=== PATIENT | male | born 1935 | race Caucasian/White ===

== ENCOUNTER 2016-07-26 12:02 | Outpatient (CLI) | payer OTHER ==
[2014-07-30 11:50] VITALS: BP 138/72
== END 2016-07-26 12:03 ==
LOC: LAB 12:02
PROVIDERS: ATTEND Internal Medicine Cardiovascular Disease
DX: I48.0 Paroxysmal atrial fibrillation (principal); Z79.01 Long term (current) use of anticoagulants
CPT/HCPCS: 36415; 85610

== ENCOUNTER 2016-08-09 09:32 | Outpatient (CLI) | payer OTHER ==
[2014-07-30 11:50] VITALS: BP 138/72
== END 2016-08-09 09:44 ==
LOC: LAB 09:32
PROVIDERS: ATTEND Internal Medicine Cardiovascular Disease
DX: Z51.81 Encounter for therapeutic drug level monitoring (principal); Z79.01 Long term (current) use of anticoagulants; I48.0 Paroxysmal atrial fibrillation
CPT/HCPCS: 36415; 85610

== ENCOUNTER 2016-09-13 09:50 | Outpatient (CLI) | payer OTHER ==
[2014-07-30 11:50] VITALS: BP 138/72
== END 2016-09-13 09:51 ==
LOC: LAB 09:50
PROVIDERS: ATTEND Internal Medicine Cardiovascular Disease
DX: Z51.81 Encounter for therapeutic drug level monitoring (principal); Z79.01 Long term (current) use of anticoagulants; I48.2 Chronic atrial fibrillation
CPT/HCPCS: 36415; 85610

== ENCOUNTER 2016-10-07 12:39 | Outpatient (CLI) | payer OTHER ==
[2014-07-30 11:50] VITALS: BP 138/72
[2016-10-07 13:02] LABS: BASOPHILS % 0.2 (0.0-1.5); EOSINOPHILS % 3.4 % (0.0-6.8); LYMPHOCYTES # 1.1 # k/uL (0.6-4.0); MEAN CORPUSCULAR HEMOGLOBIN 30.6 pg (28.0-34.0); MONOCYTES # 0.4 # k/uL (0.0-0.9); MONOCYTES % 7.3 % (0.0-11.0); NEUTROPHILS # 3.1 # k/uL (1.4-7.7)
[2016-10-07 13:28] LABS: eGFR (African) 41; eGFR (Non-African) 34
== END 2016-10-07 12:40 ==
LOC: LAB 12:39
PROVIDERS: ATTEND Internal Medicine Cardiovascular Disease
DX: E11.29 Type 2 diabetes mellitus with other diabetic kidney complication (principal); I25.10 Atherosclerotic heart disease of native coronary artery without angina pectoris; Z51.81 Encounter for therapeutic drug level monitoring; Z79.01 Long term (current) use of anticoagulants; I48.2 Chronic atrial fibrillation
CPT/HCPCS: 36415; 80053; 80061; 83036; 84439; 84443; 85025; 85610

== ENCOUNTER 2016-11-14 09:27 | Outpatient (CLI) | payer OTHER ==
[2014-07-30 11:50] VITALS: BP 138/72
== END 2016-11-14 09:30 ==
LOC: LAB 09:27
PROVIDERS: ATTEND Internal Medicine Cardiovascular Disease
DX: Z51.81 Encounter for therapeutic drug level monitoring (principal); Z79.01 Long term (current) use of anticoagulants; I48.0 Paroxysmal atrial fibrillation
CPT/HCPCS: 36415; 85610

== ENCOUNTER 2016-11-17 12:19 | Outpatient (CLI) | payer OTHER ==
[2014-07-30 11:50] VITALS: BP 138/72
== END 2016-11-17 12:20 ==
LOC: LAB 12:19
PROVIDERS: ATTEND Internal Medicine Cardiovascular Disease
DX: I48.0 Paroxysmal atrial fibrillation (principal); Z79.01 Long term (current) use of anticoagulants
CPT/HCPCS: 36415; 85610

== ENCOUNTER 2016-12-05 05:16 | Emergency (ER) | payer OTHER ==
[2016-12-05] MEDS ORDERED: NITROGLYCERIN 0.4 MG TAB.SUBL SL PRN (05:24)
[2016-12-05] MEDS ORDERED: IPRATROPIUM/ALBUTEROL SULFATE 3 ML AMPUL.NEB NEB ONE ×2 (05:24→05:41)
[2016-12-05] MEDS ORDERED: FUROSEMIDE 40 MG/4 ML VIAL IVP ONE (05:33)
[2016-12-05 05:42] LABS: BASOPHILS % 0.1 (0.0-1.5); EOSINOPHILS % 2.4 % (0.0-6.8); MEAN CORPUSCULAR HEMOGLOBIN 30.1 pg (28.0-34.0); MEAN CORPUSCULAR VOLUME 93.5 fl (80.0-100.0); MONOCYTES % 4.7 % (0.0-11.0); NEUTROPHILS # 3.5 # k/uL (1.4-7.7)
[2016-12-05 05:53] LABS: eGFR (African) 39; eGFR (Non-African) 32
[2016-12-05] MEDS ORDERED: ALBUTEROL SULFATE 2.5 MG/3 ML AMPUL.NEB NEB ONE (06:10)
[2016-12-05] MEDS ORDERED: DEXTROSE 50% 50 ML DISP.SYRIN IVP ONE ×2 (06:28→06:57)
--- NOTE | 2016-12-05 06:43 | ED Physician Documentation ---
Altered Mental Status - HISTORIAN Historian: patient, spouse, child - HPI Chief Complaint: Altered Mental Status Additional Information: awoke heard pt snoring resp unresponsive-EMS arrioved found fsbs=42-gave him 2 amps d50 awoke sstill resp distress. on arrival here appeared flash pulm edema-tx w o2 sl ntg, 2.5 enalapril alb and duoneb now breathing much better but still wheezing. family says stopped lasix approx 1 week ago-40mg. pts bnp [id number]. pt moving more air and states feel much better Onset: hours (3), continues in ED Last known Well Date: 12/02/16 Last Known Well Time: 14:00 Last known Well Code/Unknown Code: Known Character of Altered Mental Status: none (on ed arrival but very sob moves very little air) Context: given D50 [employer]. denies: recent alcohol intake, drug abuse, drug overdose Cognition is Usually: alert, oriented x3 Gait is Usually: walks w/o assistance - ROS EYES/ENT: none CVS/RESP: shortness of breath, other (pacemaker w/capture) MS/SKIN/LYMPH: leg swelling (legs eljal-xfbswzpte-dvzy to family sig more than usual-lasix stopped recently) NEURO/PSYCH: anxiety - PAST HX Past History: diabetes Type 1, other (mi cabg x4 pacemaker chf) Surgeries/Procedures: cardiac bypass (x4 2 yrs ago) Allergies/Adverse Reactions: Allergies Allergy/AdvReac Type Severity Reaction Status Date / Time No Known Allergies Allergy Verified 07/29/14 13:30 Home Medications: Ambulatory Orders Medication Instructions Recorded Aspirin [Baron] 1 tab PO DAILY 02/03/14 Levothyroxine Sodium [Synthroid] 0.125 mcg PO D 02/03/14 Omeprazole 20 mg PO BID 02/03/14 Atorvastatin Calcium [Lipitor] 80 mg [id number] 07/29/14 Clopidogrel Bisulfate [Plavix] 75 mg QDAY 07/29/14 Docusate Sodium [Colace] 50 mg D 07/29/14 Furosemide 160 mg BID 07/29/14 Insulin Aspart [Novolog Flexpen] 10 unit SQ TID 07/29/14 Insulin Glargine,Hum.rec.anlog 20 units SQ HS 07/29/14 [Lantus Solostar] Metolazone [Zaroxolyn] 2.5 mg D 07/29/14 Potassium Chloride [Klor-Con M10] 10 meq BID 07/29/14 Tamsulosin HCl [Flomax] 0.4 mg D 07/29/14 amLODIPine BESYLATE [Norvasc] 5 mg PO DAILY #1 tablet 07/30/14 - SOCIAL HX Smoking History: non-smoker, quit greater than 1 year Alcohol Use: none Drug Use: none - FAMILY HX Family History: no significant history - VITAL SIGNS Vital Signs: Vital Signs Temp Pulse Resp BP Pulse Ox 138/72 07/30/14 10:00 - REVIEWED ASSESSMENTS Nursing Assessment Reviewed: Yes Vitals Reviewed: Yes ED Results Lab/Radiology - Lab Results Lab Results: Lab Results 12/05/16 12/05/16 12/05/16 05:30 05:30 05:30 WBC 4.70 K/ul K/ul (4.00-12.00) RBC 2.96 M/ul L M/ul (3.90-5.20) Hgb 8.9 g/dL L g/dL (12.0-18.0) Hct 27.6 % L % (37.0-53.0) MCV 93.5 fl fl (80.0-100.0) MCH 30.1 pg pg (28.0-34.0) MCHC 32.2 g/dL g/dL (30.0-36.0) RDW 15.9 % H % (11.3-14.3) Plt Count 137 K/mm3 K/mm3 (130-400) Neut % (Auto) 75.5 % % (39.0-79.0) Lymph % (Auto) 16.2 % % (16.0-50.0) Lawrence % (Auto) 4.7 % % (0.0-11.0) Eos % (Auto) 2.4 % % (0.0-6.8) Baso % (Auto) 0.1 (0.0-1.5) Neut # 3.5 # k/uL # k/uL (1.4-7.7) Lymph # 0.8 # k/uL # k/uL (0.6-4.0) Lawrence # 0.2 # k/uL # k/uL (0.0-0.9) Eos # 0.1 # k/uL # k/uL (0.0-0.6) Baso # 0.0 # k/uL # k/uL (0.0-0.5) Reactive Lymphs % 1.0 % % (0.0-5.0) Reactive Lymphs # 0.0 # k/uL # k/uL (0.0-0.8) Sodium 144 mmol/L mmol/L (136-145) Potassium 4.3 mmol/L mmol/L (3.5-5.0) Chloride 105 mmol/L mmol/L (98-110) Carbon Dioxide 31 mmol/L mmol/L (20-32) BUN 56 mg/dL H mg/dL (10-26) Creatinine 2.1 mg/dL H mg/dL (0.4-1.5) Est GFR ( Amer) 39 L (60 - ) Est GFR (Non-Af Amer) 32 L (60 - ) Glucose 195 mg/dL H mg/dL (70-99) Calcium 8.5 mg/dL mg/dL (8.5-10.5) Total Bilirubin 0.6 mg/dL mg/dL (0.2-1.2) AST 38 U/L U/L (0-41) ALT 41 U/L U/L (0-45) Alkaline Phosphatase 99 U/L U/L (46-116) Creatine Kinase 159 U/L U/L (0-225) Troponin I 0.03 ng/mL ng/mL (0.03-0.06) NT-Pro-B Natriuret Pep 67110.9 pg/mL H pg/mL (15.0-450.0) Total Protein 6.4 g/dL g/dL (6.0-8.5) Albumin 3.5 g/dL g/dL (3.0-5.5) - Radiology Radiology Impressions: cxr=cardiomegally pulm edema espl on lt - Orders Orders: ED Orders Category Date Time Status CHEST 1 VIEW [RAD] Routine Exams 12/05/16 05:22 Taken CHEST P.A.&LAT 2 VIEWS [RAD] Stat Exams 12/05/16 Stop Req BNP [NT-proBNP] Stat Lab 12/05/16 05:30 Completed CBC/PLATELET/DIFF Routine Lab 12/05/16 05:30 Completed CMP Routine Lab 12/05/16 05:30 Completed CREATINE KINASE Routine Lab 12/05/16 05:30 Completed TROPONIN I (cTnI) Stat Lab 12/05/16 05:30 Completed Albuterol Sulfate [Ventolin] Med 12/05/16 06:10 Discontinued 2.5 mg NEB NOW ONE Furosemide [Lasix] Med 12/05/16 05:33 Discontinued 40 mg IVP NOW ONE Ipratropium/Albuterol Sulfate [Duoneb] Med 12/05/16 05:24 Discontinued 3 ml NEB NOW ONE Ipratropium/Albuterol Sulfate [Duoneb] Med 12/05/16 05:41 Discontinued 3 ml NEB NOW ONE Nitroglycerin [Nitroquick] Med 12/05/16 05:24 Ordered 0.4 mg SL Q5M PRN Oxygen Stat Oxygen 12/05/16 05:30 Ordered EKG WITH COMPARISON Stat Ther 12/05/16 Ordered Altered Mental Status Physical - Physical Exam General Appearance: moderate distress, severe distress Neuro/Psych: depression, other (very sob) oriented x3, no evidence of acute CVA Peripheral Exam: motor nml, sensation nml HEENT: NONI, EOM's intact Neck: carotid bruit Respiratory: wheezes, other (dec resp-moves very little air on arrival) CVS: other (pacemaker w/capture) Abdomen: No: no distention Skin: normal color, diaphoresis (slight pt - cold) Extremities: normal range of motion, edema (very marked) Discharge Clincal Impression: Hypoglycemia associated with diabetes, flash pulmonary edema, CHF (congestive heart failure) Referrals: Armando Ramirez MD [Primary Care Provider] - 2 Days Home Medications: Ambulatory Orders Aspirin [Baron] 1 tab PO DAILY 02/03/14 Levothyroxine Sodium [Synthroid] 0.125 mcg PO D 02/03/14 Omeprazole 20 mg PO BID 02/03/14 Atorvastatin Calcium [Lipitor] 80 mg [id number] 07/29/14 Clopidogrel Bisulfate [Plavix] 75 mg QDAY 07/29/14 Docusate Sodium [Colace] 50 mg D 07/29/14 Furosemide 160 mg BID 07/29/14 Insulin Aspart [Novolog Flexpen] 10 unit SQ TID 07/29/14 Insulin Glargine,Hum.rec.anlog [Lantus Solostar] 20 units SQ HS 07/29/14 Metolazone [Zaroxolyn] 2.5 mg D 07/29/14 Potassium Chloride [Klor-Con M10] 10 meq BID 07/29/14 Tamsulosin HCl [Flomax] 0.4 mg D 07/29/14 amLODIPine BESYLATE [Norvasc] 5 mg PO DAILY #1 tablet 07/30/14 Comments: disc w/family-DR BARRETT[facility] Condition: Fair Disposition: 02 XFER [facility] Decision to Admit: [id number] Decision Time: 06:42
--- NOTE | 2016-12-05 06:52 | Diagnostic Imaging Report ---
DEMETRIO SANTOS [facility] [address] [facility].[address] [address] Report Submission Date: December 05, 2016 5:40:13 AM CDT Patient Study Name: FROYLAN MAR Date: December 05, 2016 5:19:00 AM CDT Modality Type: CR Gender: M Description: CHEST : 33 Institution: [facility] Physician: DEMETRIO SANTOS Chest - one-view Clinical history: Shortness of breath. Difficulty breathing. Findings: Examination of the chest single portable AP view 12/05/2016 0519 hours with comparison to examination of 07/29/2014 demonstrates cardiomegaly and aortic atherosclerosis. There are postoperative changes with multiple sternotomy wires. Implanted defibrillator overlies the left hemithorax. Retrocardiac region is dense consistent with left lower lobe infiltrate or atelectasis. There is mild pulmonary vascular redistribution. Impression: 1. Cardiomegaly and aortic atherosclerosis. 2. Postoperative chest. 3. Left basilar infiltrate or atelectasis with pulmonary vascular redistribution. Electronically signed on December 05, 2016 5:40:13 AM CDT by: Girma SCHMID
[2016-12-05] MEDS ORDERED: RACEPINEPHRINE HCL 1 EACH VIAL.NEB NEB ONE ×2 (07:42)
[2016-12-05 07:48] VITALS: BP 133/95
== END 2016-12-05 07:35 | disposition short-term general hospital (02) ==
LOC: ED 05:16
DX: E10.649 Type 1 diabetes mellitus with hypoglycemia without coma (principal); I50.1 Left ventricular failure, unspecified
CPT/HCPCS: 36415; 51702; 71010; 80053; 82550; 83880; 84484; 85025; 93005; J1940; 96374; 99284

== ENCOUNTER 2016-12-17 11:15 | Outpatient (CLI) | payer OTHER ==
[2016-12-17 12:00] LABS: BASOPHILS % 0.3 (0.0-1.5); EOSINOPHILS % 3.5 % (0.0-6.8); MEAN CORPUSCULAR HEMOGLOBIN 28.1 pg (28.0-34.0); MONOCYTES % 5.2 % (0.0-11.0); NEUTROPHILS # 2.5 # k/uL (1.4-7.7)
== END 2016-12-17 11:16 ==
LOC: LAB 11:15
PROVIDERS: ATTEND Nurse Practitioner Family
DX: I50.9 Heart failure, unspecified (principal); N18.9 Chronic kidney disease, unspecified; R71.0 Precipitous drop in hematocrit
CPT/HCPCS: 85025

== ENCOUNTER 2016-12-22 14:10 | Emergency (ER) | payer OTHER ==
[2016-12-22] MEDS ORDERED: DEXTROSE 50% 50 ML DISP.SYRIN IVP PRN (14:25)
[2016-12-22] MEDS ORDERED: 0.9 % SODIUM CHLORIDE 1,000 ML IV SCH (14:30)
[2016-12-22 14:54] LABS: BASOPHILS % 0.1 (0.0-1.5); EOSINOPHILS % 1.7 % (0.0-6.8); MEAN CORPUSCULAR HEMOGLOBIN 27.5 pg (28.0-34.0); MEAN CORPUSCULAR VOLUME 90.4 fl (80.0-100.0); MONOCYTES % 6.6 % (0.0-11.0); NEUTROPHILS # 3.9 # k/uL (1.4-7.7)
[2016-12-22] MEDS ORDERED: 0.9 % SODIUM CHLORIDE 1,000 ML IV ONE (15:35)
--- NOTE | 2016-12-22 17:11 | ED Physician Documentation ---
General Adult - HISTORIAN Historian: patient, spouse - [facility] Chief Complaint: Syncope Additional Information: syncope dt bs=\38. pt waiting in car at [employer] while shopped. when she ret he was unresponsive-brought him to [facility] pvt vehicle-unresponsive diaphoretic. given 50cc 50% d/w became responsive. recent [facility] for bleeding ulcer given 3 units blood-took him ofrf lasix back to [facility] for CHF--HOME FEW DAYS PRIOR TO TODAY Onset: minutes (est 40) Timing: better (after iv d/w) Severity: moderate - ROS CONST: sweating, recent illness, weakness CVS/RESP: shortness of breath GI/: none NEURO/PSYCH: fainting. denies: difficulty with speech (unresponsive on hosp [place] arrival) - PAST HX Past History: other (iddm htn chf bleeding ulcer w/blood tnsf 3 units mi w/5 stents renal failure ) Surgeries/Procedures: cardiac stent (x5), other (toe amp knee surg) Allergies/Adverse Reactions: Allergies Allergy/AdvReac Type Severity Reaction Status Date / Time No Known Allergies Allergy Verified 12/22/16 14:33 Home Medications: Ambulatory Orders Medication Instructions Recorded Levothyroxine Sodium [Synthroid] 0.125 mcg PO D 02/03/14 Atorvastatin Calcium [Lipitor] 80 mg PO [id number] 07/29/14 Insulin Aspart [Novolog Flexpen] 10 unit SQ TID 07/29/14 Insulin Glargine,Hum.rec.anlog 20 units SQ HS 07/29/14 [Lantus Solostar] Potassium Chloride [Klor-Con M10] 10 meq PO BID 07/29/14 Tamsulosin HCl [Flomax] 0.4 mg D 07/29/14 Carvedilol [Coreg] 25 mg PO BID 12/05/16 - SOCIAL HX Smoking History: non-smoker Alcohol Use: none Drug Use: none - FAMILY HX Family History: No - VITAL SIGNS Vital Signs: Vital Signs Temp Pulse Resp BP Pulse Ox 133/95 12/05/16 07:45 - REVIEWED ASSESSMENTS Nursing Assessment Reviewed: Yes Vitals Reviewed: Yes ED Results Lab/Radiology - Orders Orders: ED Orders Category Date Time Status Place IV Lock 1T Care 12/22/16 14:[address] BRAIN W/O CONTRAST Stat Exams 12/22/16 Ordered CBC/PLATELET/DIFF Routine Lab 12/22/16 Ordered CMP Routine Lab 12/22/16 Ordered URINALYSIS Routine Lab 12/22/16 Ordered Dextrose 50% [Dextrose 50%-Water Syringe] Med 12/22/16 14:25 Ordered 50 ml IVP NOW PRN NORMAL SALINE @ 100 MLS/HR(1000ml) Med 12/22/16 14:30 Ordered 0.9 % Sodium Chloride [Normal Saline] 1,000 ml IV Q10H Oxygen Daily Oxygen 12/22/16 14:30 Ordered EKG WITH COMPARISON Stat Ther 12/22/16 Ordered General Adult Physical Exam - PHYSICAL EXAM GENERAL APPEARANCE: moderate distress (pt fr pvt auto unres and diaphoretic-bs+ 38) EENT: NONI NECK: normal inspection RESPIRATORY: no resp distress CVS: reg rate & rhythm, heart sounds normal ABDOMEN: soft, non-tender EXTREMITIES: other (swollen lt arm and lt leg) NEURO: oriented X3 (after awakening from 50cc 50% d/w) Discharge Clincal Impression: hypo glycemia, diabetes 1, anemia due to recent gi bleed Referrals: Armando Ramirez MD [Primary Care Provider] - 2 Days Home Medications: Ambulatory Orders Levothyroxine Sodium [Synthroid] 0.125 mcg PO D 02/03/14 Atorvastatin Calcium [Lipitor] 80 mg PO [id number] 07/29/14 Insulin Aspart [Novolog Flexpen] 10 unit SQ TID 07/29/14 Insulin Glargine,Hum.rec.anlog [Lantus Solostar] 20 units SQ HS 07/29/14 Potassium Chloride [Klor-Con M10] 10 meq PO BID 07/29/14 Tamsulosin HCl [Flomax] 0.4 mg D 07/29/14 Carvedilol [Coreg] 25 mg PO BID 12/05/16 Comments: copy lab w/ - see pcp very soon Condition: Fair Disposition: HOME, SELF-CARE Decision to Admit: NO Decision Time: 17:10
[2016-12-22 17:29] VITALS: BP 122/52
== END 2016-12-22 17:10 | disposition home or self-care (01) ==
LOC: ED 14:10
DX: E10.641 Type 1 diabetes mellitus with hypoglycemia with coma (principal)
CPT/HCPCS: 36415; 80053; 85025; 87040; J7030; 96360; 99283; 99284; S1016